=== PATIENT | female | born 1955 | race Caucasian/White ===

== ENCOUNTER → 2016-09-05 | Outpatient (CLI) | payer BC ==
[~2016-09-05] MED LIST: ASPIRIN81 MG PO; B COMPLEX/FOLIC1 TAB; CALTRATE PLUS T1 TA1 PO; CAPOZIDE; CYANOCOBALAM1000 MCG PO; FISH OIL 1,01 CAP.EC PO; GLUCOPHAGE XR500 MG PO; GLUCOTROL XL PO; HYDROCHLOROTHIA25 MG PO; LEVEMIR100 U/ML; LEVOTHROID50 MCG PO; LISINOPRIL5 MG PO; METFORMIN PO; MULTI VITAMIN1 EACH PO; MULTI-VITAMIN1 TAB; VITAMIN D10000 UNIT PO; ZYRTEC5 M2 PO
--- NOTE | ~2016-09-05 | MY11 ---
[facility] A Service [facility] RADIOLOGY TEXT RESULTS PATIENT: LOS HARGROVE LOCATION: [facility] : 53 UNIT #: [id number] AGE: [address]: Sam Mejia SEX: F ORDER DR: [id number] [address] [id number] O MR#: [id number] Acc #: [id number] NAME: LOS HARGROVE : 1955 SEX: F STUDY DATE/TIME: 09/05/2016 15:43 UNIT: [facility] ROOM: STUDY DESCRIPTION: MY Mammogram Screening Dig Lino Attending Physician: Vj Bonilla Ordering Physician: Vj Bonilla Primary Care Physician: Vj Bonilla MEDICAL IMAGING REPORT This report is preliminary unless electronic signature is present EXAM Bilateral digital screening mammogram with CAD, 09/05/2016 INDICATION A 60-year-old female for routine screening. No reported problems and no personal or family history of breast cancer. No surgeries. TECHNIQUE CC and MLO views of the breasts were obtained and reviewed with an approved CAD device COMPARISON STUDIES 08/31/2015, 05/05/2014 and 03/01/2013 FINDINGS Breast parenchyma is composed of scattered fibroglandular densities. The pattern is unchanged. There is no new dominant, nodule mass or suspicious clustered microcalcifications. Scattered fibronodular densities bilaterally stable for technical factors. IMPRESSION 1. Benign screening mammogram 1 year followup recommended. 2. BIRADS 2 Patients over the age of 40 are entered into a reminder system with target due date for the next mammogram. A result letter will also be sent to the patient. BIRADS: 2 Benign Finding Dictated by... [facility] A Service [facility] RADIOLOGY TEXT RESULTS PATIENT: LOS HARGROVE LOCATION: [facility] : 53 UNIT #: [id number] AGE: [address]: Roberto,Sam B PAC SEX: F ORDER DR: Armando Leon M.D. THIS IS AN ELECTRONICALLY VERIFIED REPORT Armando Leon M.D. at 09/06/2016 8:06 AM Milvia TD: 09/05/2016 19:34 JOB #: [id number] MEDICAL IMAGING REPORT Page 1 of 1 COPY
== END | disposition home or self-care (01) ==
LOC: CWCC 15:37
DX: Z12.31 Encounter for screening mammogram for malignant neoplasm of breast (principal)
CPT/HCPCS: G0202